=== PATIENT | female | born 1980 | race Caucasian/White ===

== ENCOUNTER 2017-03-02 13:59 | Emergency (ER) | payer OTHER ==
[~2017-03-02] VITALS: Ht 162.6 cm; Wt 54.5 kg
[2017-03-02 16:07] VITALS: BP 126/73
== END 2017-03-02 16:07 | disposition home or self-care (01) ==
LOC: EMS 14:17
DX: Z04.1 Encounter for examination and observation following transport accident (principal); M54.5 Low back pain; R07.81 Pleurodynia; F17.210 Nicotine dependence, cigarettes, uncomplicated; V49.59XA Passenger injured in collision with other motor vehicles in traffic accident, initial encounter; Y93.89 Activity, other specified; Y92.488 Other paved roadways as the place of occurrence of the external cause; Y99.8 Other external cause status
CPT/HCPCS: 71020; 99284

== ENCOUNTER 2017-11-09 16:49 | Emergency (ER) | payer OTHER ==
[~2017-11-09] VITALS: Ht 162.6 cm; Wt 58.2 kg
[2017-11-09] MEDS ORDERED: D-ME237L19 PO (17:04)
[2017-11-09 19:04] LABS: APPEARANCE,URINE CLEAR (CLEAR); BILIRUBIN,URINE NEGATIVE (NEGATIVE); GLUCOSE, URINE (UA) NEGATIVE (NEGATIVE); KETONES,URINE NEGATIVE (NEGATIVE); LEUKOCYTE ESTERASE ,URINE LARGE (NEGATIVE); NITRATE,URINE NEGATIVE (NEGATIVE); OCCULT BLOOD,URINE NEGATIVE (NEGATIVE); PH,URINE 6.5 (5.0-8.0); PROTEIN,URINE NEGATIVE (NEGATIVE); UROBILINOGEN,URINE 0.2 mg/dL (<=1.0)
[2017-11-09 19:06] LABS: RBC,URINE 0-2 /HPF (0-2)
[2017-11-09 19:09] LABS: BACTERIA,URINE Rare /HPF (None Seen)
[2017-11-09 19:10] LABS: SQUAMOUS EPITHELIAL CELL,UR Rare /LPF (None Seen)
[2017-11-09 19:13] LABS: INFLUENZA TYPE A NEGATIVE FOR TYPE A (NEGATIVE); INFLUENZA TYPE B NEGATIVE FOR TYPE B (NEGATIVE)
[2017-11-09] MEDS ORDERED: KETOROLAC TROMETHAMINE 30 MG/ML VIAL IM ONE (19:30)
[2017-11-09] MEDS ORDERED: SULFAMETHOX/TRIMETH DS 800-160 MG/TABLET PO ONE (19:30)
[2017-11-09] MEDS ORDERED: MetroNIDAZOLE 500 MG TABLET PO ONE (19:30)
[2017-11-09] MEDS ORDERED: IBUPROFEN 800 MG TABLET PO ONE (19:45)
[2017-11-09 20:20] VITALS: BP 136/73
== END 2017-11-09 20:23 | disposition home or self-care (01) ==
LOC: EMS 16:49
DX: N39.0 Urinary tract infection, site not specified (principal); A59.9 Trichomoniasis, unspecified
CPT/HCPCS: 81001; 87086; 87804; 99284; J1885